=== PATIENT | male | born 1985 | race African-American/Black ===

== ENCOUNTER 2016-12-23 12:31 | Emergency (ER) | payer OTHER ==
[~2016-12-23] VITALS: Ht 172.7 cm; Wt 80.0 kg
[2016-12-23 12:36] VITALS: Ht 172.7 cm; Wt 80.0 kg
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
[2016-12-23 13:38] VITALS: BP 135/75; PULSE 72; RESP 19; TEMP 98.5
== END 2016-12-23 13:39 ==
LOC: E/R 12:31
DX: T75.4XXA Electrocution, initial encounter (principal); Y35.893A Legal intervention involving other specified means, suspect injured, initial encounter
CPT/HCPCS: 93005